=== PATIENT | male | born 1940 | race Caucasian/White ===

== ENCOUNTER 2017-05-15 15:09 | Emergency (ER) | payer MEDICARE ==
[2017-05-15 15:21] VITALS: TEMP 98.2; O2SAT 100
[2017-05-15] MEDS ORDERED: Tetanus/Diphtheria Toxoids 0.5 ml Syringe IM ONE ×2 (15:36→15:46)
[2017-05-15] MEDS ORDERED: Tdap Vaccine 0.5 ml Vial (10-64 yrs) IM ONE (15:43)
--- NOTE | 2017-05-15 16:09 | C.PDOC ---
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 STATES REMAINING PIECE GOT "EATEN UP" BY MACHINE. NO OTHER INJ Time Seen by Provider: 05/15/17 15:28 Chief Complaint (Nursing): Abnormal Skin Integrity History Per: Patient History/Exam Limitations: no limitations Onset/Duration Of Symptoms: Days Current Symptoms Are (Timing): Still Present Past Medical History Reviewed: Historical Data, Nursing Documentation, Vital Signs Vital Signs: Last Vital Signs Temp 98.2 F 05/15/17 17:16 Pulse 69 05/15/17 17:16 Resp 20 05/15/17 17:16 BP 167/84 H 05/15/17 17:16 Pulse Ox 100 05/15/17 17:17 Family History: States: No Known Family Hx - Social History Hx Tobacco Use: No Hx Alcohol Use: Yes Hx Substance Use: No - Immunization History Hx Tetanus Toxoid Vaccination: No Hx Influenza Vaccination: No Hx Pneumococcal Vaccination: No Review Of Systems Musculoskeletal: Positive for: Other (amputation second digit right hand) Physical Exam - Physical Exam Appears: Well, Non-toxic, No Acute Distress Skin: Normal Color, Warm, Dry, No Rash Extremity: Other (second digit on right upper extremity: avulsion inj of pad of dstal phalanx with positive bone fragmment exposure +active arterial bleed + laceration. No gross FB) ED Course And Treatment O2 Sat by Pulse Oximetry: 100 (RA) Pulse Ox Interpretation: Normal - Other Rad XR X-Ray: Viewed By Me, Read By Radiologist (MID DISTAL PHALANX AMPUTATION) Progress - Re-Evaluation Re-evaluation Note: 05/15/17 17:[address] HARDIN, AWARE OF XR AND WOUND FINDINGS. WILL EVAL IN ER ADVISES PO KEFLEX, COMPRESSION DRESSING. 05/15/17 18:[address] HARDIN. BLEEDING CONTROLLED S/P COMPRESSION DRESSING. WOUND REDRESSED W XEROFORM BY DR HARDIN. PT ADVISED BY DR HARDIN FOR OFFICE 05/18 FOR O.R. REVISION. - Data Reviewed Data Reviewed: Diagnostic imaging - Continuity of Care Discussed pt. case with lifestyle consultant/specialty: Other (HAND SURGERY) Medical Decision Making Medical Decision Making: PROCEDURE: DIGITAL BLOCK Performed by the emergency provider Indication: Pain control Location: R hand, first digit Preparation: The area was prepped and cleansed with Saline Procedure:The appropriate site for a nerve block was identified. Nerve block was obtained with local infiltration of 3mL of bupivacaine Post-Procedure: The patient tolerated the procedure well, and there were no complications. Disposition Counseled Patient/Family Regarding: Studies Performed, Diagnosis, Need For Followup, Rx Given - Disposition Referrals: Kenyon Hardin MD [Staff Provider] - Disposition: HOME/ ROUTINE Disposition Time: 18:16 Condition: IMPROVED Additional Instructions: FOLLOW UP DR HARDIN OFFICE 05/18/17 Prescriptions: Cephalexin [cephalexin] 500 mg PO BID #14 cap oxyCODONE/Acetaminophen [Percocet 5/325 mg Tab] 1 ea PO Q6 PRN #10 tab PRN Reason: Pain, Moderate (4-7) Instructions: Amputation of the Finger or Fingertip Forms: [facility] (British), Work Excuse - Clinical Impression Clinical Impression: Fingertip amputation - Scribe Statement The provider has reviewed the documentation as recorded by the Scribe (Robson Lewis) All medical record entries made by the Scribe were at my direction and personally dictated by me. I have reviewed the chart and agree that the record accurately reflects my personal performance of the history, physical exam, medical decision making, and the department course for this patient. I have also personally directed, reviewed, and agree with the discharge instructions and disposition.
[2017-05-15] MEDS ORDERED: Bupivacaine HCl 0.25% PF (10 ml) Inj IJ ONE (16:23)
--- NOTE | 2017-05-15 16:30 | RAD ---
PROCEDURE: Left Index finger radiographs. HISTORY: AMPUTATION COMPARISON: None. TECHNIQUE: AP radiograph of the left hand, as well as spot oblique and lateral images of index finger were obtained. FINDINGS: LEFT INDEX FINGER: There is crush injury in the distal phalanx of the 2nd finger with amputation of the mid portion of the distal phalanx. Remainder of the left hand (as seen on the AP view) grossly intact. JOINTS: Normal. SOFT TISSUES: There is soft tissue swelling and irregularity in the distal 2nd finger. No radiopaque foreign body. OTHER FINDINGS: None. IMPRESSION: Crush injury and traumatic amputation of the midportion of the distal phalanx of the index finger with soft tissue swelling and irregularity related to laceration. No radiopaque foreign body.
[2017-05-15 18:34] VITALS: BP 150/80; PULSE 70; RESP 18
--- NOTE | 2017-05-16 21:40 | CON ---
DATE: REASON FOR CONSULTATION: Index finger laceration. HISTORY OF PRESENT ILLNESS: This is a 76-year-old male who presents to [facility] due to injury to his finger at work. 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 He present to [facility]. I was consulted for further evaluation and treatment. PHYSICAL EXAMINATION: RIGHT INDEX FINGER: There is a volar loss tissue of the distal phalanx. Distal phalanx bone is missing. Nail is intact. There is significant loss of the volar flap skin and soft tissue. No arterial bleed at this time. The patient has active flexion and extension of his MP and PIP joints. X-rays were seen and reviewed, show complete loss of the distal phalanx bone. ASSESSMENT: Right index finger loss of volar soft tissue mass and bone. PLAN: I had a long discussion with the patient on the above findings. I recommended surgery. Surgery will include flap closure of the digit due to loss of volar skin and soft tissue. I recommended a compression dressing at this time and following up with me in 2 to 3 days for a wound check. I explained to the patient that prior to performing surgery, I want to still evaluate the patient's wound for any viable or nonviable soft tissues. This will be better addressed after a few days of compression dressing treatment. Kenyon Hardin MD MARIA C
== END 2017-05-15 18:35 | disposition home or self-care (01) ==
LOC: C.ER 15:09
DX: S68.120A Partial traumatic metacarpophalangeal amputation of right index finger, initial encounter (principal); W23.0XXA Caught, crushed, jammed, or pinched between moving objects, initial encounter; Z23 Encounter for immunization